=== PATIENT | male | born 1965 | race Caucasian/White ===

== ENCOUNTER 2018-02-09 18:07 | Inpatient (IN) | payer OTHER ==
[~2018-02-09] VITALS: Ht 180.3 cm; Wt 94.3 kg
[2018-02-09] MEDS ORDERED: ALPR1TAB7 PO (18:29)
[2018-02-09] MEDS ORDERED: QUIN20TA PO (18:29)
--- NOTE | 2018-02-09 19:00 | NUR ---
Assumed care of pt at this time. Pt is resting in bed, appears anxious. Pt states he has many stressors going on in his life right now. Pt denies SI/HI. AAOX4. Waiting to be seen by ER .
[2018-02-09 19:50] LABS: BASOPHILS # (AUTO) 0.1 K/uL (0.0-8.0); BASOPHILS % (AUTO) 0.8 % (0.0-2.0); EOSINOPHILS # (AUTO) 0.2 K/uL (0.0-0.7); EOSINOPHILS % (AUTO) 1.4 % (0.0-7.0); HEMATOCRIT 45.6 % (36.7-47.1); HEMOGLOBIN 15.9 g/dL (12.5-16.3); LYMPHOCYTES # (AUTO) 1.4 K/uL (20.0-40.0); MEAN CORPUSCULAR HEMOGLOBIN 31.1 uug (23.8-33.4); MEAN CORPUSCULAR HGB CONC 35 g/dL (32.5-36.3); MEAN CORPUSCULAR VOLUME 89.2 fL (73.0-96.2); MONOCYTES # (AUTO) 0.9 K/uL (2.0-10.0); MONOCYTES % (AUTO) 8.9 % (0.0-11.0); NEUTROPHILS % (AUTO) 75.9 % (38.5-71.5); PLATELET COUNT (AUTO) 255 K/uL (152-348); RED BLOOD CELL COUNT(AUTO) 5.11 MIL/uL (4.06-5.63); WHITE BLOOD COUNT (AUTO) 10.6 K/uL (3.6-10.2)
[2018-02-09 20:02] LABS: CARBON DIOXIDE 26 mmol/L (21-32); CHLORIDE 101 mmol/L (98-107); CREATININE 1.2 mg/dL (0.6-1.3); GLUCOSE 132 mg/dL (74-106); POTASSIUM 3.8 mmol/L (3.5-5.1); UREA NITROGEN, BLOOD 15 mg/dL (7-18)
[2018-02-09 20:07] LABS: *BILIRUBIN,URIN NEGATIVE (NEGATIVE); *BLOOD, URINE NEGATIVE (NEGATIVE); *CLARITY,URINE CLEAR (CLEAR); *COLOR,URINE YELLOW (YELLOW); *KETONES,URINE NEGATIVE (NEGATIVE); *PROTEIN,URINE NEGATIVE (NEGATIVE); *UROBILINOGEN,URINE 0.2 E.U./dl (NORMAL); LEUKOCYTE ESTERASE ,URINE NEGATIVE (NEGATIVE); NITRITE, URINE NEGATIVE (NEGATIVE); UGLUCOSE NEGATIVE (NEGATIVE)
[2018-02-09 20:14] LABS: ALANINE AMINOTRANSFERASE 36 U/L (16-63); ALKALINE PHOSPHATASE 84 U/L (50-136); ASPARTATE AMINOTRANSFERASE 14 U/L (15-37); BILIRUBIN,DIRECT 0.1 mg/dL (0.0-0.2); BILIRUBIN,TOTAL 0.5 mg/dL (0.2-1.0); TOTAL PROTEIN, SERUM 7.6 g/dL (6.4-8.2)
--- NOTE | 2018-02-09 20:15 | NUR ---
Pt states he is having some chest pain/discomfort. Notified MD. Repeat EKG done.
[2018-02-09 20:18] LABS: BACTERIA,URINE NONE SEEN /HPF (NONE SEEN); RBC,URINE 0-3 /HPF (0-3); SQUAMOUS EPITHELIAL CELL,UR NONE SEEN /HPF (NONE SEEN); WBC,URINE 0-3 /HPF (0-3)
[2018-02-09 20:20] LABS: ACETAMINOPHEN < 2.0 ug/mL (10-30)
[2018-02-09 20:22] LABS: ETHANOL < 3 MG/DL (0-0)
[2018-02-09 20:26] LABS: *AMPHETAMINE, URINE NEGATIVE (NEGATIVE); *BARBITURATE, URINE NEGATIVE (NEGATIVE); *CANNABINOID, URINE POSITIVE (NEGATIVE); *COCCAINE, URINE NEGATIVE (NEGATIVE); *OPIATE, URINE NEGATIVE (NEGATIVE); *PHENCYCLIDINE SCREEN,URINE NEGATIVE (NEGATIVE)
[2018-02-09] MEDS ORDERED: ALPRAZOLAM 0.25 MG TABLET PO ONE (20:45)
[2018-02-09] MEDS ORDERED: METOPROLOL TARTRATE 50 MG TABLET PO ONE (20:45)
[2018-02-09] MEDS ORDERED: ASPIRIN 325 MG TABLET PO ONE (20:45)
[2018-02-09] MEDS ORDERED: METOPROLOL TARTRATE 50 MG TABLET ONE (20:51)
[2018-02-09] MEDS ORDERED: ASPIRIN 325 MG TABLET ONE (20:51)
[2018-02-09] MEDS ORDERED: ALPRAZOLAM 0.5 MG TABLET ONE (20:52)
--- NOTE | 2018-02-09 23:21 | NUR ---
Dr. Ellison speaking to Dr. Torres (Cardiology)
[2018-02-10] VITALS (7 sets, daily range): BP systolic 124–155; BP diastolic 63–99
[2018-02-10] MEDS ORDERED: NITROGLYCERIN OINT 1 GM PACKET TP ONE ×2 (00:15→00:28)
[2018-02-10] MEDS ORDERED: ONDANSETRON IV *ER 4 MG/2 ML VIAL IV ONE (00:15)
[2018-02-10] MEDS ORDERED: MORPHINE SULFATE 4 MG/1 ML DISP.SYRIN IV ONE (00:15)
[2018-02-10] MEDS ORDERED: ENOXAPARIN SODIUM 80 MG/0.8 ML DISP.SYRIN SQ ONE ×2 (00:15→00:28)
[2018-02-10] MEDS ORDERED: ONDANSETRON 4 MG/2 ML VIAL ONE (00:29)
[2018-02-10] MEDS ORDERED: MORPHINE SULFATE 4 MG/1 ML DISP.SYRIN ONE (00:29)
--- NOTE | 2018-02-10 00:29 | NUR ---
Faxed clinical to [facility] . Sofía art coordinator from [facility] will call back with machine adjuster leader case trim
--- NOTE | 2018-02-10 00:41 | NUR ---
Pt refused Nitro ointment, morphine, & zofran. aware.
--- NOTE | 2018-02-10 01:06 | NUR ---
Dr. Ellison on phone with Jonh Clark.
--- NOTE | 2018-02-10 01:49 | NUR ---
Pt. admitted to Telemetry , under care of Jonh Clark. Diagnosis: Chest Pain Belongs List completed. Report given to Joycelyn MCCANN.
--- NOTE | 2018-02-10 02:01 | NUR ---
RECEIVED PATIENT FROM ER DX:CHEST PAIN.PATIENT [id number].BREATHING EVEN AND UNLABORED NO RESPIRATORY DISTRESS NOTED ON ROOM AIR. WHEN ASKED PATIENT DENIES PAIN .ADMISSION DATA COLLECTED FROM PATIENT.PATIENT VERBALIZED HIS HUNGRY GIVEN HAM SANDWICH ABLE TO FEED SELF ,WITH GOOD APPETITE . ORIENTED WITH ROOM AND EQUIPMENT AND CALL LIGHT PLACED WITH IN REACH ADVISED PATIENT TO CALL FOR ASSISTANCE . PER PATIENT HE WANTS TO REST AND HIS BEEN UP ALL DAY .
--- NOTE | 2018-02-10 02:45 | NUR ---
CALLED DOCTOR RAKAN FOR ADMISSION ORDERS PER ER DRFlor BLEDSOE SPOKED WITH SORAYA MILLARD AND HE WILL ADMIT PATIENT SINCE [facility] IS NOT CALLING BACK CASTING MACHINE OPERATOR AUTOMATIC FOR EPIC.
--- NOTE | 2018-02-10 03:00 | NUR ---
called [facility] INFORMED NEEDS ADMISSION ORDERS. NEW PATIENT FROM ER DX:CHEST PAIN .
--- NOTE | 2018-02-10 03:00 | NUR ---
CALLED [facility] AND INFORMED NEEDS ORDER FOR NEW PATIENT HERE [place] [facility] IS THERAPIST PHYSICAL AND NOT CALLING BACK THEY WILL CONTINUE TO CALL HER BACK .
--- NOTE | 2018-02-10 04:10 | NUR ---
SPOKED WITH [facility] STILL NO ADMITTING ORDERS FOR THE NEW PATIENT LEFT MESSAGE TO SERVICE AND INFORMED NURSING MED[employer] COLLECTION SPECIALIST ORION THAT SERVICE UNABLE TO CONTACT [facility] AND UP TO NOW NO ORDERS FOR THIS PATIENT .
--- NOTE | 2018-02-10 04:47 | NUR ---
DR: KAMARI CALLED AND HE SAID HE WILL PUT ORDER FOR THIS PATIENT.
--- NOTE | 2018-02-10 04:47 | NUR ---
SPOKED WITH SORAYA BENITES HE WILL PUT ORDERS .
[2018-02-10] MEDS ORDERED: ZOLPIDEM 5 MG TABLET PO PRN (05:00)
[2018-02-10] MEDS ORDERED: LORAZEPAM 1 MG TABLET PO PRN (05:00)
[2018-02-10] MEDS ORDERED: MORPHINE SULFATE 2 MG/1 ML DISP.SYRIN IV PRN (05:00)
[2018-02-10] MEDS ORDERED: ONDANSETRON 4 MG/2 ML VIAL IV PRN (05:00)
[2018-02-10] MEDS ORDERED: NITROGLYCERIN 0.4 MG/TAB BOTTLE SL PRN (05:00)
--- NOTE | 2018-02-10 06:10 | NUR ---
GIVEN LORAZEPAM PER PER REQUEST.
--- NOTE | 2018-02-10 07:15 | NUR ---
bedside report given patient in bed asleep . no respiratory distress noted.no s/s/ of discomfort .
--- NOTE | 2018-02-10 08:00 | NUR ---
AWAKE ALERT COOPERATE WELL NO SOB OR CHEST PAIN EAT BREAKFAST WELL RESTING WITH CALL VILLEGAS IN REACH
[2018-02-10] MEDS: METOPROLOL TARTRATE 50 MG TABLET PO SCH ×2 (08:34→15:22)
[2018-02-10] MEDS ORDERED: ASPIRIN 81 MG TAB.CHEW PO SCH (09:00)
[2018-02-10 11:58] LABS: POTASSIUM 3.8 mmol/L (3.5-5.1)
--- NOTE | 2018-02-10 13:00 | NUR ---
DR KAHN SEEN PATIENT AND LAB RESULT TODAY AND ECCHOCARDIOGRAM PERFORM AT BEDSIDE ROSA PROCEDURE WELL NO SOB OR PAIN EAT LUNCH WELL
[2018-02-10] MEDS ORDERED: ASPI-612 PO (15:25)
--- NOTE | 2018-02-10 16:30 | NUR ---
DR LUCAS SEEN PATIENT AND ECCHO RESULT AND ORDER OK TO D/C TELE AND PATIENT REQUEST WANT TO GO HOME TODAY IF POSS DR KAHN WAS INFORM AND MESSAGE LEFT
[2018-02-10] MEDS ORDERED: ALPRAZOLAM 0.5 MG TABLET PO SCH (17:00)
--- NOTE | 2018-02-10 18:00 | NUR ---
D/C INSTRUCTION REGARDING F/U WITH OWN PMD CONTINUE HOME MEDICINE PRECRIPTION /ORDER AND EDUCATION PK GAVE .,VERBALIZES UNDERSTAND AND SIGNS D/C SHEET HL WAS D/C PRIOR D/C HOME TODAY
[2018-02-10] MEDS ORDERED: METO50TA16 PO (18:05)
[2018-02-10] MEDS ORDERED: ASPI81TA31 PO (18:05)
--- NOTE | 2018-02-10 18:25 | NUR ---
D/C HOME WITH HIS BELONGING CONDITION STABLE NO SOB OR CHEST PAIN
== END 2018-02-10 18:30 | disposition home or self-care (01) | DRG 199 ==
LOC: ER 18:10 → TELE 02-10 01:10
PROVIDERS: ADMIT Nurse Practitioner Acute Care; ATTEND Internal Medicine
DX: I11.9 Hypertensive heart disease without heart failure (principal); E66.9 Obesity, unspecified; F41.9 Anxiety disorder, unspecified; I45.10 Unspecified right bundle-branch block; Z86.79 Personal history of other diseases of the circulatory system; Z90.49 Acquired absence of other specified parts of digestive tract; Z79.899 Other long term (current) drug therapy; Z79.82 Long term (current) use of aspirin; Z68.29 Body mass index [BMI] 29.0-29.9, adult; Z87.891 Personal history of nicotine dependence; R73.9 Hyperglycemia, unspecified
CPT/HCPCS: 36415; 70030-TC; 71045; 80307; 85025; 85730; 93005; 93307; A4663; G0378; G0480; G0480-TC; J1650; J2270; J2405

== ENCOUNTER 2018-02-11 23:42 | Emergency (ER) | payer OTHER ==
[~2018-02-11] VITALS: Ht 182.9 cm; Wt 93.9 kg
[~2018-02-11 23:42] MED LIST: ALPR1TAB7 PO; ASPI81TA31 PO; METO50TA16 PO; QUIN20TA PO
[2018-02-12 00:38] LABS: BASOPHILS # (AUTO) 0.1 K/uL (0.0-8.0); BASOPHILS % (AUTO) 1.5 % (0.0-2.0); EOSINOPHILS # (AUTO) 0.2 K/uL (0.0-0.7); EOSINOPHILS % (AUTO) 2.6 % (0.0-7.0); HEMATOCRIT 44.6 % (36.7-47.1); HEMOGLOBIN 15.5 g/dL (12.5-16.3); LYMPHOCYTES # (AUTO) 2.1 K/uL (20.0-40.0); LYMPHOCYTES % (AUTO) 23.9 % (20.5-51.5); MEAN CORPUSCULAR HGB CONC 35 g/dL (32.5-36.3); MEAN CORPUSCULAR VOLUME 89.1 fL (73.0-96.2); MONOCYTES # (AUTO) 0.8 K/uL (2.0-10.0); MONOCYTES % (AUTO) 9.5 % (0.0-11.0); NEUTROPHILS # (AUTO) 5.6 K/uL (1.8-8.9); NEUTROPHILS % (AUTO) 62.5 % (38.5-71.5); PLATELET COUNT (AUTO) 247 K/uL (152-348); WHITE BLOOD COUNT (AUTO) 8.9 K/uL (3.6-10.2)
[2018-02-12] MEDS ORDERED: ALPRAZOLAM 0.25 MG TABLET PO ONE (01:00)
[2018-02-12 01:11] LABS: CREATININE 1.2 mg/dL (0.6-1.3); POTASSIUM 3.4 mmol/L (3.5-5.1)
[2018-02-12] MEDS ORDERED: ALPRAZOLAM 0.5 MG TABLET ONE (01:17)
--- NOTE | 2018-02-12 01:23 | NUR ---
Pt c/o racing heart, mouth dryness and sweating. Pt denies SOB, dizziness, n/v, no other complaints, no distress noted, but pt appears very anxious. Pt placed on monitor, EKG given to . Lab chantal blood.
[2018-02-12 01:29] LABS: BILIRUBIN,DIRECT 0.1 mg/dL (0.0-0.2); BILIRUBIN,TOTAL 0.4 mg/dL (0.2-1.0); TOTAL PROTEIN, SERUM 7.5 g/dL (6.4-8.2)
--- NOTE | 2018-02-12 02:04 | NUR ---
Gave pt d/c instructions, pt verbalized understanding.
[2018-02-12 02:06] VITALS: BP 152/92
== END 2018-02-12 02:07 | disposition home or self-care (01) ==
LOC: ER 23:44
DX: F41.9 Anxiety disorder, unspecified (principal); R00.2 Palpitations; R63.1 Polydipsia; I45.10 Unspecified right bundle-branch block; I10 Essential (primary) hypertension; F17.200 Nicotine dependence, unspecified, uncomplicated; Z88.0 Allergy status to penicillin; Z88.2 Allergy status to sulfonamides; Z91.018 Allergy to other foods
CPT/HCPCS: 36415; 70030-TC; 85025; 85730; 93005; A4663